=== PATIENT | male | born 1975 | race Caucasian/White ===

== ENCOUNTER 2019-05-11 14:02 | Observation (INO) | payer BC, SELFPAY ==
[2019-05-11 14:37] LABS: #Basophils 0.1 thou/uL (0.0-0.2); #Eosinphils 0.2 thou/uL (0.0-0.7); #Lymphocytes 3.5 thou/uL (1.20-3.40); #Monocytes 0.9 thou/uL (0.11-0.59); #Neutrophils 12.2 thou/uL (1.40-6.50); %Basophils 0.5 % (0.0-1.0); %Lymphocytes 20.9 % (21.0-51.0); %Monocytes 5.3 % (0.0-10.0); %Neutrophils 72.3 % (42.0-75.0); Hemoglobin 15.6 g/dL (14.0-18.0); Mean Corpuscular HGB CONC 33.5 g/dL (32.0-36.0); Mean Corpuscular Hemoglobin 31.7 pg (27.0-31.0); Mean Corpuscular Volume 94.5 fL (78.0-98.0); Mean Platelet Volume 7.8 fL (7.4-10.4); Platelet Count 247 thou/uL (130-400); RBC Distribution Width 11.8 % (11.5-14.5); Red Blood Cell (RBC) Count 4.93 mill/uL (4.70-6.10); White Blood Cell (WBC) Count 16.9 thou/uL (4.8-10.8)
[2019-05-11 14:53] LABS: ALT (SGPT) 27 U/L (8-55); AST (SGOT) 15 U/L (5-34); Albumin 4.3 g/dL (3.5-5.0); Alkaline Phosphatase 85 U/L (40-150); Anion Gap 16 mmol/L (10-20); BUN (Urea Nitrogen) 17 mg/dL (8.9-20.6); Bilirubin, Total 0.6 mg/dL (0.2-1.2); CK (CPK) 157 U/L (30-200); Calc. Creatinine Clearance 0 mL/min (70-130); Calcium 9.3 mg/dL (7.8-10.44); Carbon Dioxide 22 mmol/L (22-29); Chloride 102 mmol/L (98-107); Estimated GFR-MDRD 52; Globulin 2.8 g/dL (2.4-3.5); Glucose 140 mg/dL (70-105); Lipase 41 U/L (8-78); Potassium 4.1 mmol/L (3.5-5.1); Protein, Total 7.1 g/dL (6.0-8.3); Sodium 136 mmol/L (136-145)
--- NOTE | 2019-05-11 14:57 | RAD ---
CHEST ONE VIEW: HISTORY: Chest pain. COMPARISON: 04/17/2016 FINDINGS: Heart size is within normal limits. Lungs are clear. No pneumonia, edema, or pleural effusion. IMPRESSION: No acute intrathoracic disease. Stable from prior study. POS: [facility]
[2019-05-11] MEDS ORDERED: Aspirin 325 MG TAB ONE (15:35)
[2019-05-11] MEDS ORDERED: Fentanyl 100 MCG/2 ML VIAL ONE (15:35)
[2019-05-11] MEDS ORDERED: Lidocaine Viscous Sol 2% 15 ml UD Cup ONE (15:54)
[2019-05-11] MEDS ORDERED: Mag-Al 1200 mg/1200 mg/30 ML UDCUP ONE (15:54)
[2019-05-11 17:59] LABS: Bilirubin Negative (Negative); Blood, Urine Negative (Negative); Clarity CLOUDY (Clear); Glucose, Urine (Dipstick) Negative (Negative); Leukocyte Negative (Negative); Nitrite Negative (Negative); Protein, Urine (Dipstick) Trace mg/dL (Neg-Trace); Specific Gravity, Urine 1.016 (1.002-1.036)
[2019-05-11 18:10] LABS: Amphetamine Not Detected (NotDetected); Barbiturates Screen Not Detected (NotDetected); Benzodiazepine Screen Not Detected (NotDetected); Cocaine Metabolite Screen Not Detected (NotDetected); Medtox Control Line Valid? VALID (VALID); Medtox Reader # READER 4; Methadone Not Detected (NotDetected); Methamphetamine Not Detected (NotDetected); Opiate Screen Not Detected (NotDetected); Oxycodone Screen Not Detected (NotDetected); Phencyclidine (PCP) Not Detected (NotDetected); THC/Cannabinoid Screen Not Detected (NotDetected); Tricyclic Screen Not Detected (NotDetected)
[2019-05-11 19:02] LABS: Troponin I Less than 0.010 ng/mL (< 0.028)
[2019-05-11 20:13] VITALS: BMI 37.2
[2019-05-11] MEDS ORDERED: Nitroglycerin 2% Ointment 1 INCH/1 GM Packet TOP PRN (21:00)
[2019-05-11] MEDS ORDERED: traZODone HCl 150 MG TAB PO SCH (21:30)
[2019-05-11] MEDS ORDERED: Atorvastatin Calcium 40 MG TAB PO SCH (21:30)
[2019-05-11] MEDS ORDERED: Meloxicam 15 MG TAB PO SCH (21:30)
[2019-05-11 22:07] LABS: Troponin I Less than 0.010 ng/mL (< 0.028)
[2019-05-11] MEDS ORDERED: Ondansetron ODT 4 MG TAB PO PRN (22:49)
[2019-05-11] MEDS ORDERED: Ondansetron PF 4 MG/2 ML Vial IVP PRN (22:49)
[2019-05-11] MEDS ORDERED: Acetaminophen 325 MG TAB PO PRN (22:49)
[2019-05-12 04:55] LABS: #Basophils 0.1 thou/uL (0.0-0.2); #Eosinphils 0.2 thou/uL (0.0-0.7); #Lymphocytes 3.7 thou/uL (1.20-3.40); #Monocytes 0.8 thou/uL (0.11-0.59); #Neutrophils 5.1 thou/uL (1.40-6.50); %Basophils 0.7 % (0.0-1.0); %Eosinophils 1.6 % (0.0-10.0); %Lymphocytes 37.7 % (21.0-51.0); Hemoglobin 13.9 g/dL (14.0-18.0); Mean Corpuscular Hemoglobin 32.4 pg (27.0-31.0); Mean Corpuscular Volume 95.5 fL (78.0-98.0); Mean Platelet Volume 7.8 fL (7.4-10.4); Platelet Count 206 thou/uL (130-400); RBC Distribution Width 11.8 % (11.5-14.5); Red Blood Cell (RBC) Count 4.28 mill/uL (4.70-6.10); White Blood Cell (WBC) Count 9.7 thou/uL (4.8-10.8)
[2019-05-12 05:24] LABS: Anion Gap 13 mmol/L (10-20); BUN (Urea Nitrogen) 17 mg/dL (8.9-20.6); Calc. Creatinine Clearance 200 mL/min (70-130); Calcium 8.9 mg/dL (7.8-10.44); Carbon Dioxide 20 mmol/L (22-29); Chloride 106 mmol/L (98-107); Estimated GFR-MDRD Greater than 90; Glucose 106 mg/dL (70-105); Potassium 3.9 mmol/L (3.5-5.1); Sodium 135 mmol/L (136-145)
[2019-05-12] MEDS ORDERED: Lisinopril 20 MG TAB PO SCH (09:00)
[2019-05-12] MEDS ORDERED: Aspirin Chewable 81 MG TAB PO SCH (09:00)
[2019-05-12] MEDS ORDERED: Enoxaparin Sodium 40 MG/0.4 ML SYRINGE SC SCH (09:00)
--- NOTE | 2019-05-12 12:04 | NM ---
EXAM: NM Cardiac Stress W EF WF PROVIDED CLINICAL HISTORY: Chest pain. History of coronary artery disease. COMPARISON: 08/26/2010 [employer]: 33 mCi technetium 99m sestamibi, IV at stress and 11 mCi technetium 99m sestamibi, IV at rest. MEDICATIONS: 0.4 mg of Lexiscan, IV. FINDINGS: There is a small area of diminished uptake in the ventricular apex on both the resting and stress acq uisitions. No reversible defect is seen within the left ventricular myocardium. Quantitative analysis also shows no reversible defect. Gated images demonstrate normal ventricular wall motion and wall thickening. Calculated left ventricular ejection fraction is 58%. Left ventricular ejection fraction on study in 2009 was calculated at 54%. IMPRESSION: 1. Normal myocardial perfusion study without evidence of a reversible defect seen to suggest ischemia . 2. Small fixed defect within the ventricular apex, but normal ventricular wall motion and wall thicke judith is present in this region. Findings may be attributable to mild apical thinning. 3. Normal LV function with normal LVEF of 58%.
[2019-05-12] MEDS: Enoxaparin Sodium 40 MG/0.4 ML SYRINGE SC SCH ×2 (12:22→12:27)
--- NOTE | 2019-05-12 12:27 | EKG ---
Test Reason : Blood Pressure : / mmHG Vent. Rate : 098 BPM Atrial Rate : 098 BPM P-R Int : 142 ms QRS Dur : 086 ms QT Int : 352 ms P-R-T Axes : 055 030 023 degrees QTc Int : 449 ms Normal sinus rhythm Normal ECG Confirmed by OPAL CULLEN ([id number]), supervising editor trailer AMBER PULIDO ([id number]) on 05/12/2019 12:26:50 PM Referred By: Confirmed By:OPAL CULLEN
[2019-05-12] MEDS ORDERED: Regadenoson 0.4 MG/5 ML SYRINGE ONE (13:11)
[2019-05-12 15:54] VITALS: BP 130/61; TEMP 97.3
[2019-05-12] MEDS ORDERED: Atorvastatin Calcium 40 MG TAB PO SCH (21:00)
[2019-05-12] MEDS ORDERED: traZODone HCl 150 MG TAB PO SCH (21:00)
[2019-05-12] MEDS ORDERED: Meloxicam 15 MG TAB PO SCH (21:00)
--- NOTE | 2019-05-13 03:38 | DIS ---
DATE OF ADMISSION: 05/11/2019 DATE OF DISCHARGE: 05/12/2019 DISCHARGE DIAGNOSES: 1. Chest pain, noncardiac. 2. Acute kidney injury secondary to dehydration, improved. 3. Dehydration, mild. 4. Hypertension, stable. 5. Hyperlipidemia. CONSULTATIONS: None. PERTINENT LABORATORY DATA AND X-RAY FINDINGS: Creatinine ranged between 0.80 to 1.49. Estimated GFR ranged between 52 to greater than 90. Magnesium 2.0. LFTs within normal limits. Troponin-I negative x3. BNP 12. Lipase 41. CBC showed a white blood cell count ranged between 9.7 to 16.9. Urine drug screen dated 05/11/2019, negative. Portable chest x-ray dated 05/11/2019 showed no acute cardiopulmonary process. Cardiolite stress test dated 05/12/2019 showed no evidence for reversible or fixed ischemia with a small fixed defect at the apex. Calculated ejection fraction 58%. HOSPITAL COURSE: The patient was observed on the telemetry unit after initially presenting with chest pain and shortness of breath. The patient underwent serial cardiac biomarkers, which were negative x3 proceeding to Cardiolite stress testing showing no evidence for reversible ischemia with calculated ejection fraction 58%. Telemetry monitoring showed sinus mechanism without evidence of acute arrhythmia or dysrhythmia, and the patient overall remained clinically stable. The patient did receive IV fluids after mild dehydration noted with associated acute kidney injury. I have examined the patient at the time of discharge and discussed followup instructions. The patient verbalized understanding and agreement ready for discharge on 05/12/2019. DISCHARGE MEDICATIONS: 1. Lisinopril 20 mg p.o. daily. 2. Losartan/hydrochlorothiazide 50/12.5 mg one tablet p.o. daily. 3. Lasix 20 mg p.o. q.a.m. 4. Meloxicam 15 mg p.o. at bedtime. 5. Metoprolol succinate 50 mg p.o. daily. 6. Trazodone 150 mg p.o. at bedtime. 7. Enteric-coated aspirin 81 mg p.o. daily. 8. Lipitor 40 mg p.o. at bedtime. FOLLOWUP: The patient will follow up with his primary care provider, Dr. Yariel Montano within 7 days of discharge. CONDITION ON DISCHARGE: Stable. ACTIVITY: Ad-yves. DIET: Heart healthy. CODE STATUS: Full. DISPOSITION: To home, 05/12/2019. Job ID: [id number]
--- NOTE | 2019-05-13 15:22 | HP ---
PRIMARY CARE DOCTOR: Dr. Yariel Montano. CODE STATUS: Full code. TIME OF EVALUATION: 2200 hours. CHIEF COMPLAINT: Chest pain. HISTORY OF PRESENT ILLNESS: This is a 43-year-old male patient with past medical history of coronary artery disease with with cardiac arrest, came to the hospital after having chest pain that started today when he was walking in the mall and that was in the middle of the chest, radiated to his shoulder, when severe it was 7 to 8/10, no clear triggers, no alleviating factors. No cough. No fever. No sputum production. Symptoms started suddenly and disappeared suddenly. REVIEW OF SYSTEMS: CONSTITUTIONAL: No fever, chills, or generalized weakness. RESPIRATORY: No cough, sputum production, or shortness of breath. CARDIOVASCULAR: . GASTROINTESTINAL: No nausea, vomiting, diarrhea, or abdominal pain. MOP MAN: No dizziness, headache, or feeling lightheaded. GENITOURINARY: No burning on urination. EXTREMITIES: No leg swelling. All other systems were reviewed and negative, except for the findings mentioned above. PAST MEDICAL HISTORY: As mentioned in the HPI. PAST SURGICAL HISTORY: Right shoulder, right knee, cholecystectomy, cardiac stents x2. PSYCHIATRIC HISTORY: No previous psych history. FAMILY HISTORY: Reviewed and non contributory to current presentation. SOCIAL HISTORY: The patient denies alcohol. No drugs. He is a smoker, one pack per day. KNOWN ALLERGIES: No known drug allergies. REPORTED MEDICATIONS: 1. Metoprolol. 2. Furosemide. 3. Lisinopril. 4. Amlodipine. 5. Meloxicam. 6. Atorvastatin. 7. Hydrochlorothiazide. 8. Trazodone. PHYSICAL EXAMINATION: VITAL SIGNS: On presentation, heart rate 89, respiratory rate was 18, temperature 98.6. Pain was 7/10. Oxygen saturation was 99% on room air. GENERAL: The patient is alert, oriented, not in acute distress. HEENT: Eyes, normal conjunctivae. Moist oral mucosa. Anicteric. NECK: No JVD. RESPIRATORY: Bilateral air entry. No rales. No wheezes. Symmetric expansion. CARDIOVASCULAR: Normal rate, regular rhythm. No murmurs. No gallop. No edema. ABDOMEN: Soft. Normal bowel sounds. MUSCULOSKELETAL: Baseline range of motion and strength. SKIN: Warm, intact. No pallor. No rash. No redness. Capillary refill seems to be intact. NEUROLOGIC: No evidence of any new focal weakness. Cranial nerves seems to be intact. PSYCH: The patient is in good mood. No anxiety. Optimal judgment. DIAGNOSTIC DATA: EKG was reviewed. The patient has normal sinus rhythm with a rate of 98. No ST elevation. No T-wave changes. LABORATORY DATA: Labs were reviewed. The patient's white count was 16.9, hemoglobin 15.6, platelet count 247 with a D-dimer of 0.42. Sodium 136, potassium was normal, chloride was normal. Creatinine 1.49. normal. The GFR is 52. The patient is hyperglycemic. Creatinine is 1.49. No previous admission creatinine to compare, but it has resolved in the repeat BMP. Troponin has been negative x3. UA was done and was negative. Drug screen was negative. ASSESSMENT AND PLAN: The patient will be placed in the hospital for the following medical problems: 1. Chest pain, rule out acute coronary syndrome. The patient has typical chest pain that was on and off. Repeat troponin has been negative. Monitor has been negative. EKG has been negative. There is no evidence or diagnosis of acute coronary syndrome at this point. We will send the patient for stress test. We will consult, Dr. Fernandez, since he knows the patient from before. 2. Acute kidney injury on presentation with a creatinine of 1.49. This has corrected after initial hydration. 3. Leukocytosis with white count of 16.9. These have improved. Looks like it might have been developed due to acute distress. 4. Hyperglycemia. No history of diabetes. This could be related to acute physical distress. We will monitor. No need for any acute intervention at this point. . 5. Deep venous thrombosis prophylaxis. Job ID: [id number] [facility]
== END 2019-05-12 19:06 | disposition home or self-care (01) ==
LOC: ERS 14:02 → 2SW 18:02
PROVIDERS: ADMIT Internal Medicine; ATTEND Internal Medicine
DX: R07.89 Other chest pain (principal); E86.0 Dehydration; N17.9 Acute kidney failure, unspecified; I10 Essential (primary) hypertension; E78.5 Hyperlipidemia, unspecified; D72.829 Elevated white blood cell count, unspecified; R73.9 Hyperglycemia, unspecified; I25.2 Old myocardial infarction; I25.10 Atherosclerotic heart disease of native coronary artery without angina pectoris; F17.210 Nicotine dependence, cigarettes, uncomplicated; Z95.5 Presence of coronary angioplasty implant and graft; Z79.899 Other long term (current) drug therapy
CPT/HCPCS: 36415; 71045; 78452; 80048; 80053; 80306; 81003; 82550; 83690; 83735; 83880; 84484; 85025; 85379; 93005; 93017; 94760; 96361; 96374; A9500; G0378; J1650; J2785; J3010